=== PATIENT | female | born 1980 | race Two or more races ===

== ENCOUNTER 2024-08-31 03:55 | Emergency (ER) | payer OTHER ==
[~2024-08-31] VITALS: Ht 162.6 cm; Wt 97.7 kg
[2024-08-31] MEDS: SODIUM CHLORIDE 0.9% 1,000 ML IV ONE (04:38)
[2024-08-31] MEDS: MAALOX PLUS or MAALOX 30 ML PO ONE (04:42)
[2024-08-31 04:45] LABS: Basophils # (auto) 0.1 10 ^3/uL (0-0.2); Basophils % (auto) 0.6 % (0.0-2.0); Eosinophils # (auto) 0 10 ^3/uL (0-0.8); Eosinophils % (auto) 0.2 % (0.0-7.0); Hematocrit 41.3 % (36.0-46.0); Hemoglobin 13.9 g/dL (12.2-16.2); Lymphocytes % (auto) 21.5 % (10.0-50.0); Mean Corpuscular Hemoglobin 30.1 pg (28.0-32.0); Mean Corpuscular Hgb Conc. 33.8 g/dL (32.0-36.0); Mean Corpuscular Volume 89.2 fL (80.0-100.0); Monocytes # (auto) 0.3 10 ^3/uL (0-1.3); Monocytes % (auto) 2.9 % (0.0-12.0); Neutrophils # (auto) 7.1 10 ^3/uL (1.6-8.6); Neutrophils % (auto) 74.8 % (37.0-80.0); Platelet Count (auto) 356 10^3/uL (140-450); Red Blood Cells 4.63 10^6/uL (4.0-5.20); Red Cell Distribution Width 13.9 % (11.8-14.3); White Blood Cell 9.4 10^3/uL (4.4-10.8)
[2024-08-31 04:56] LABS: Chloride 105 mmol/L (98-107); Sodium 137 mmol/L (136-145)
[2024-08-31 04:57] LABS: Anion Gap 7 (5-15); Calcium 9.7 mg/dL (8.7-10.4); Carbon Dioxide 25 mmol/L (20-31)
[2024-08-31 05:00] VITALS: PULSE 90; RESP 18; TEMP 98; O2SAT 96
[2024-08-31 05:02] LABS: BUN/Creatinine Ratio 15.7 (10.0-20.0); Blood Urea Nitrogen 14 mg/dL (9-23); Glucose 146 mg/dL (74-106); Lipase 36 U/L (12-53)
[2024-08-31] MEDS: PANTOPRAZOLE 40 MG/10 ML VIAL INJ IV ONE (05:30)
[2024-08-31] MEDS: IOHEXOL 300 MG/ML 100ML BOTTLE IJ ONE (06:05)
[2024-08-31 06:15] VITALS: BP 127/75; PULSE 76; RESP 16
[2024-08-31] MEDS: MORPHINE SULFATE 4 MG/ML SYR/VIAL IV ONE (06:15)
[2024-08-31] MEDS: ONDANSETRON HCL 4 MG/2 ML VIAL IV ONE (06:15)
[2024-08-31 08:13] LABS: Urine Bacteria FEW /hpf (None Seen); Urine Blood 1+ /uL (Negative); Urine Clarity Clear (Clear); Urine Color Yellow (Yellow); Urine Protein, UAD Negative (Negative); Urine Specific Gravity 1.032 (1.001-1.035); Urine Urobilinogen Normal (Negative); Urine WBC 1 /hpf (0 - 5); Urine pH 7.5 (5.0-9.0)
== END 2024-08-31 06:28 | disposition home or self-care (01) ==
LOC: ER 03:55
DX: K80.20 Calculus of gallbladder without cholecystitis without obstruction (principal); I10 Essential (primary) hypertension
CPT/HCPCS: 36415; 74177; 80048; 81001; 83690; 85025; 96361; 96374; 96375; 99291; J2270; J2405; J2470; J7030; Q9967